=== PATIENT | male | born 1965 | race Caucasian/White ===

== ENCOUNTER 2018-02-18 15:19 | Emergency (ER) | payer OTHER ==
[~2018-02-18] VITALS: Ht 177.8 cm; Wt 84.0 kg
[2018-02-18] MEDS ORDERED: HYDROcodone/acetaminophen 10/325mg tab PO ONE (15:30)
[2018-02-18] MEDS ORDERED: BUPIVAcaine/PF 2.5 mg/ml (0.25%) 30ml vial IJ ONE (15:45)
[2018-02-18] MEDS ORDERED: BUPIVAcaine/PF 2.5mg/ml (0.25%) 10ml vial IJ ONE (16:00)
[2018-02-18] MEDS ORDERED: BUPIVAcaine 0.5% inj/PF 30 ml vial IJ ONE (16:00)
[2018-02-18 16:10] VITALS: BP 112/80
[2018-02-18] MEDS ORDERED: HYDR-4353 PO (16:42)
== END 2018-02-18 17:04 | disposition home or self-care (01) ==
LOC: ER 15:20
DX: S63.286A Dislocation of proximal interphalangeal joint of right little finger, initial encounter (principal); Z79.899 Other long term (current) drug therapy; V29.88XA Motorcycle rider (driver) (passenger) injured in other specified transport accidents, initial encounter; Y93.89 Activity, other specified; Y92.89 Other specified places as the place of occurrence of the external cause; Y99.8 Other external cause status
CPT/HCPCS: 26770; 73130; 73140; 99284; J3490

== ENCOUNTER 2021-06-24 10:11 | Emergency (ER) | payer BC, OTHER ==
[~2021-06-24] VITALS: Ht 177.8 cm; Wt 87.5 kg
[2021-06-24] MEDS ORDERED: metoclopramide 5 mg/ml inj IV ONE (11:15)
[2021-06-24 11:38] LABS: BASOPHILS % (AUTO) 0.6 % (0-1); EOSINOPHILS # (AUTO) 0.3 X10'3 (0-0.9); HEMATOCRIT 40.4 % (42.0-52.0); HEMOGLOBIN 13.5 g/dl (14.0-17.9); LYMPHOCYTES # (AUTO) 1.3 X10'3 (1.1-4.8); LYMPHOCYTES % (AUTO) 38.7 % (21-51); MEAN CORPUSCULAR HEMOGLOBIN 26.4 PG (27.0-31.0); MEAN CORPUSCULAR HGB CONC 33.5 g/dL (33.0-36.5); MEAN CORPUSCULAR VOLUME 78.9 FL (78-98); MEAN PLATELET VOLUME 7.5 FL (7.4-10.4); MONOCYTES # (AUTO) 0.3 X10'3 (0-0.9); MONOCYTES % (AUTO) 9.3 % (2-12); NEUTROPHILS # (AUTO) 1.4 X10'3 (1.8-7.7); NEUTROPHILS % (AUTO) 42.4 % (42-75); PLATELET COUNT 209 X10'3 (140-440); RED BLOOD COUNT 5.12 X10'6 (4.70-6.10); RED CELL DISTRIBUTION WIDTH 17.2 % (11.5-14.5); WHITE BLOOD COUNT 3.3 X10'3 (4.5-11.0)
[2021-06-24 11:50] LABS: ALANINE AMINOTRANSFERASE 19 U/L (12-78); ALBUMIN 3.6 G/DL (3.4-5.0); ALBUMIN/GLOBULIN RATIO 1.2 (1.1-1.5); ALKALINE PHOSPHATASE 97 IU/L (46-116); ANION GAP 6 (8-16); ASPARTATE AMINO TRANSFERASE 11 U/L (10-37); BILIRUBIN,TOTAL 0.4 MG/DL (0.1-1.0); BLOOD UREA NITROGEN 19 MG/DL (7-18); CALCIUM 8.6 MG/DL (8.5-10.1); CHLORIDE 103 MMOL/L (99-107); GLUCOSE 96 MG/DL (70-104); LIPASE 179 U/L (73-393); POTASSIUM 4.5 MMOL/L (3.5-5.1); SODIUM 138 MMOL/L (135-145); TOTAL CARBON DIOXIDE 29.2 MMOL/L (24-32); TOTAL PROTEIN 6.5 G/DL (6.4-8.2); eGFR 78 ML/MIN
[2021-06-24] MEDS ORDERED: PRED20TA PO (14:08)
[2021-06-24 15:24] VITALS: BP 140/99
== END 2021-06-24 14:42 | disposition home or self-care (01) ==
LOC: ER 10:11
DX: K29.70 Gastritis, unspecified, without bleeding (principal); D72.19 Other eosinophilia; R10.84 Generalized abdominal pain; R19.7 Diarrhea, unspecified; Z72.89 Other problems related to lifestyle; Z79.899 Other long term (current) drug therapy
CPT/HCPCS: 36415; 74176; 80053; 83690; 85025; 96374; 99284; J2765